=== PATIENT | female | born 1950 | race Caucasian/White ===

== ENCOUNTER 2022-05-25 11:51 | Emergency (ER) | payer OTHER, SELFPAY ==
--- NOTE | ~2022-05-25 | XR_ITS ---
EXAMINATION: XR scapula LT DATE: 05/25/2022 12:23 INDICATION: Left scapular pain. Fall. TECHNIQUE: 2 views of left scapula were obtained. COMPARISON: None. FINDINGS: Bone alignment is normal. No fracture. There is mild glenohumeral joint osteoarthritis. A c alcified left lung nodule is consistent with old granulomatous disease. IMPRESSION: 1. Mild left glenohumeral joint osteoarthritis. Reviewed, dictated and finalized at location A.
--- NOTE | 2022-05-25 11:55 | ED.BACK ---
HPI - Back Pain/Injury General Chief Complaint: Back Pain/Injury Stated Complaint: back pain Time Seen by Provider: 05/25/22 12:00 Source: patient and RN notes reviewed Mode of arrival: ambulatory Limitations: no limitations History of Present Illness HPI Narrative: 72-year-old female presents to the [facility] with complaints of left upper back pain after slipping and falling down steps in Monday. Bruise noted to the left scapula area. Denies any midline tenderness. States that she did hit her head slightly but no loss of consciousness, no blurry vision or change in vision. Denies any nausea or vomiting. Denies any headaches. No contusion noted to the head. Walks with a normal gait. No saddle anesthesia. No numbness or tingling in extremities. No loss or retention of bowel or bladder. Related Data Home Medications Medication Instructions Recorded Confirmed amlodipine 5 mg tablet 5 mg PO DAILY 05/25/22 05/25/22 dicyclomine 10 mg capsule 10 mg PO DAILY 05/25/22 05/25/22 Allergies Allergy/AdvReac Type Severity Reaction Status Date / Time No Known Allergies Allergy Verified 05/25/22 12:27 Review of Systems Review of Systems: All systems reviewed & are unremarkable except as noted in HPI and below Constitutional: Constitutional: Reports no additional constitutional complaints, Denies chills and Denies fever(s) Eyes: Eyes: Reports no additional eye complaints ENT: Reports system reviewed and no additional complaints, except as documented Cardiovascular: Cardiovascular: Reports no additional cardiovascular complaints Respiratory: Respiratory: Reports no additional respiratory complaints Gastrointestinal: Gastrointestinal: Reports no additional gastrointestinal complaints Musculoskeletal: Musculoskeletal: Reports as per HPI and Reports back pain (LEFT UPPER ) Integumentary/Breasts: Skin/Breast: Reports as per HPI and Reports other (bruising ) Neurologic: Reports system reviewed and no additional complaints, except as documented Psychiatric: Psychiatric: Reports no additional psychiatric complaints Allergic/Immunologic: Allergic/Immunologic: Reports no additional allergic/immunologic complaints PMFSH Past Medical History Medical History History of high blood pressure Social History Social History (Updated 05/25/22 @ 19:10 by Yamilet Molina APRN) Living arrangements: with family Gender identity (if verbalized by the patient): Female Comments At the time of my signature, I reviewed and agree with the nursing past medical, surgical, social, and family history. There is no relevant family history pertinent to the patient complaint. Exam Const: General: healthy appearing, no acute distress and alert Nutritional Appearance: well nourished Orientation/consciousness: patient oriented x3 Limitations: no limitations HENMT: Head: normal to inspection Ears: external ears normal, TM's normal bilaterally and EAC's normal General nose exam: Normal external nose present and Normal nares present Face and sinus: normal facial exam Throat: posterior oropharynx normal and uvula midline Eyes: General: appearance normal, both eyes and all related structures Pupils: Equal, round and reactive pupils present Neck: Neck: normal visual inspection, no lymphadenopathy and no meningeal signs Chest: Chest palpation & inspection: normal inspection of the chest Resp: Effort & Inspection: normal respiratory effort and no use of accessory muscles Auscultation: clear to auscultation bilaterally, no crackles, no rales, no rhonchi and no wheezes Cardio: Rate: regular rate Rhythm: regular rhythm GI: GI Palp: Yes Soft to palpation and No Tenderness to palpation present (GI) Back/Spine/Pelvis: Cervical Spine: normal cervical lordosis, cervical ROM normal, No cervical muscular tenderness, No pain with cervical ROM and No Cervical spine tenderness Thoracic/Lumbar Spine
[2022-05-25 12:01] VITALS: BP 162/79; PULSE 73; RESP 16; TEMP 36.8; O2SAT 99
== END 2022-05-25 12:54 | disposition home or self-care (01) ==
PROVIDERS: Emergency Provider Nurse Practitioner; PCP Family Medicine
DX: S40.012A Contusion of left shoulder, initial encounter (principal); W10.9XXA Fall (on) (from) unspecified stairs and steps, initial encounter; I10 Essential (primary) hypertension
CPT/HCPCS: 73010; 99203; G0463

== ENCOUNTER 2024-05-17 10:33 | Emergency (ER) | payer OTHER, SELFPAY ==
[2024-05-17 10:47] VITALS: BP 142/68; PULSE 76; RESP 20; TEMP 36.4; O2SAT 97
--- NOTE | 2024-05-17 10:54 | ED.URI ---
HPI - URI/Sore Throat General Chief Complaint: Upper Respiratory Infection Stated Complaint: cough,chest congestion Source: patient, RN notes reviewed and old records reviewed Mode of arrival: ambulatory Limitations: no limitations History of Present Illness HPI Narrative: Patient presents with 8 day history sinus pain and congestion. She reports that she has had copious postnasal drainage, and now has a cough. She has associated sore throat. She does deny fever does report some malaise. Denies any injury or trauma. Voices no other concerns or complaints today. Related Data Home Medications Medication Instructions Recorded Confirmed amlodipine 5 mg tablet 5 mg PO DAILY 05/25/22 05/17/24 dicyclomine 10 mg capsule 10 mg PO DAILY 05/25/22 05/17/24 atorvastatin 80 mg tablet 80 mg PO DAILY 05/17/24 05/17/24 ropinirole 1 mg tablet 1 mg PO HS 05/17/24 05/17/24 Allergies Allergy/AdvReac Type Severity Reaction Status Date / Time No Known Allergies Allergy Verified 05/17/24 10:43 Review of Systems Review of Systems: All systems reviewed & are unremarkable except as noted in HPI and below Constitutional: Constitutional: Reports as per HPI and Reports no additional constitutional complaints ENT: Reports system reviewed and no additional complaints, except as documented and Reports as per HPI Cardiovascular: Cardiovascular: Reports as per HPI and Reports no additional cardiovascular complaints Respiratory: Respiratory: Reports as per HPI, Reports no additional respiratory complaints and Reports cough Gastrointestinal: Gastrointestinal: Reports no additional gastrointestinal complaints [facility] Past Medical History Medical History History of high blood pressure Social History Social History Living arrangements: with family Gender identity (if verbalized by the patient): Female Comments At the time of my signature, I reviewed and agree with the nursing past medical, surgical, social, and family history. There is no relevant family history pertinent to the patient complaint. Exam Const: General: cooperative, no acute distress, alert and awake Orientation/consciousness: oriented to person, oriented to place and oriented to time HENMT: Head: normal to inspection Ears: TM abnormal with fluid behind the TM bilateral Face/Nose/Sinus: sinus tenderness (frontal) and Facial tenderness on exam of face and sinuses Mouth: Yes moist mucous membranes Resp: Effort & Inspection: normal respiratory effort and able to speak in complete sentences Auscultation: clear to auscultation bilaterally, no crackles, no rales, no rhonchi and no wheezes Cardio: Palpation: normal PMI Rate: regular rate Rhythm: regular rhythm Heart sounds: S1 normal heart sound present and S2 normal heart sound present Neuro: General: oriented to person, oriented to place and oriented to time Cranial nerves: Yes CN's II-XII intact bilaterally Psych: Appearance: grossly normal Thought process: Normal thought process present Insight: Good insight present (Psych) Judgement: Good judgement present (Psych) Course Course Level of Care: Express Care Visit Vital Signs Vital signs: Vital Signs Temperature 97.6 F 05/17/24 10:47 Pulse Rate 76 05/17/24 10:47 Respiratory Rate 20 05/17/24 10:47 Blood Pressure 142/68 H 05/17/24 10:47 Pulse Oximetry 97 05/17/24 10:47 Oxygen Delivery Room Air 05/17/24 10:47 Temperature 97.6 F 05/17/24 10:47 Pulse Rate 76 05/17/24 10:47 Respiratory Rate 20 05/17/24 10:47 Blood Pressure 142/68 H 05/17/24 10:47 Pulse Oximetry 97 05/17/24 10:47 Oxygen Delivery Room Air 05/17/24 10:47 Reviewed MDM - URI/Sore Throat MDM Narrative Medical decision making narrative: Exam consistent with sinusitis. Supported by history. Start Augmentin, push fluids, plenty of rest. Follow-up
== END 2024-05-17 11:00 | disposition home or self-care (01) ==
PROVIDERS: Emergency Provider Nurse Practitioner Family
DX: J32.1 Chronic frontal sinusitis (principal); I10 Essential (primary) hypertension
CPT/HCPCS: 99213; G0463